=== PATIENT | male | born 1950 | race African-American/Black ===

== ENCOUNTER 2022-03-10 08:10 | Inpatient (IN) | payer MEDICARE, MEDICAID ==
[~2022-03-10] VITALS: Ht 170.2 cm; Wt 57.2 kg
[2022-03-10 10:59] LABS: CHLORIDE 126 mEq/L (98-107)
[2022-03-10 11:07] LABS: BASOPHILS % 0.2 % (0.0-2.0); EOSINOPHILS % 0.5 % (0.0-5.0); HEMATOCRIT. 33.4 % (42.0-52.0); HEMOGLOBIN. 10.7 g/dL (14.0-18.0); LYMPHOCYTES % 8.8 % (20.0-50.0); MEAN CORPUSCULAR HEMOGLOBIN 29.8 pg (28.0-32.0); MEAN CORPUSCULAR VOLUME 92.7 fL (80.0-94.0); MEAN PLATELET VOLUME 9.1 fl (7.4-10.4); MONOCYTES % 5.5 % (2.0-8.0); PLATELET 315 x1000/uL (130-400); RED CELL DISTRIBUTION WIDTH 15.4 % (11.6-14.6)
[2022-03-10] MEDS ORDERED: DEXTROSE 5% WATER 1,000 ML IV ONE (12:45)
[2022-03-10] MEDS ORDERED: ONDANSETRON HCL 4MG/2ML INJ IV PRN (13:30)
[2022-03-10] MEDS ORDERED: CLONIDINE 0.1MG TABLET PO PRN (13:30)
[2022-03-10] MEDS ORDERED: IPRATROPIUM/ALBUTEROL 0.5-3(2.5)MG/3ML NEB HHN PRN (13:30)
[2022-03-10] MEDS ORDERED: GUAIFENESIN 200MG/10ML SUGAR FREE UDC PO PRN (13:30)
[2022-03-10] MEDS ORDERED: MAGNESIUM/ALUMINUM HYDROXIDE/SIMETHICONE 30ML UDC PO PRN (13:30)
[2022-03-10] MEDS ORDERED: ACETAMINOPHEN 325MG TABLET PO PRN (13:30)
[2022-03-10] MEDS ORDERED: ACETAMINOPHEN 650MG/20.3ML UDC GT PRN (13:30)
[2022-03-10] MEDS ORDERED: DIPHENHYDRAMINE 50MG/ML VIAL IV PRN (13:30)
[2022-03-10 14:15] LABS: BG BASE EXCESS 1.3 mmol/L (-2.0-2.0); BG CARBOXYHEMOGLOBIN 0.6 % (0.5-1.5); BG DEOXYHEMOGLOBIN 3.2 % (0.0-5.0); BG FRACTION INSPIRED OXYGEN 21; BG HCO3 ACT 24.8 mmol/L (22.0-26.0); BG METHEMOGLOBIN 0.1 % (0.0-1.5); BG OXYGEN SATURATION 96.8 % (92.0-98.5); BG OXYHEMOGLOBIN 96.1 % (94.0-97.0); BG PCO2 35.2 mmHg (35.0-45.0); BG PH 7.465 (7.350-7.450); BG SAMPLE SITE RIGHT BRACHIAL; BG TOTAL HEMOGLOBIN 12.6 g/dL (12.0-18.0); BG VENT MODE ROOM AIR
[2022-03-10] MEDS: MEMANTINE HCL 5MG TABLET PO SCH ×2 (15:00→21:35)
[2022-03-10 17:09] VITALS: BP 132/72
[2022-03-10] MEDS: RISPERIDONE 0.5MG TABLET PO SCH (17:47)
[2022-03-10 18:00] VITALS: BP 128/78
[2022-03-10 18:57] LABS: CREATINE KINASE 52 IU/L (39-308)
[2022-03-10 19:03] LABS: T4 FREE 1.89 ng/dL (0.76-1.46)
[2022-03-10 19:51] LABS: T4 FREE 1.87 ng/dL (0.76-1.46)
[2022-03-10 20:00] VITALS: BP 106/77
[2022-03-10 20:13] LABS: FOLIC ACID (FOLATE) SERUM 17.1 ng/mL (>5.38)
[2022-03-10] MEDS: ATORVASTATIN CALCIUM 10MG TABLET PO SCH ×2 (21:00→21:35)
[2022-03-10] MEDS: MIRTAZAPINE 15MG TABLET PO SCH (21:00)
[2022-03-10] MEDS: ENOXAPARIN 40MG/0.4ML SYR SUBCUT SCH (21:34)
[2022-03-10] MEDS: BENZTROPINE MESYLATE 1MG TABLET PO SCH (21:35)
[2022-03-10] MEDS: DEXTROSE 5% WATER 1,000 ML IV SCH (21:36)
[2022-03-10] MEDS: FAMOTIDINE 20MG TABLET PO SCH (21:36)
[2022-03-11] VITALS: BP 101/75
[2022-03-11 00:40] LABS: CREATINE KINASE MB FRACTION 2.1 ng/mL (0.5-3.6)
[2022-03-11 04:00] VITALS: BP 115/83
[2022-03-11] MEDS: DEXTROSE 5% WATER 1,000 ML IV SCH ×2 (07:00→17:00)
[2022-03-11 07:33] LABS: BASOPHILS % 0.2 % (0.0-2.0); EOSINOPHILS % 0.6 % (0.0-5.0); HEMATOCRIT. 36.2 % (42.0-52.0); HEMOGLOBIN. 11.5 g/dL (14.0-18.0); LYMPHOCYTES % 9.5 % (20.0-50.0); MEAN CORPUSCULAR HEMOGLOBIN 29.5 pg (28.0-32.0); MEAN CORPUSCULAR VOLUME 93.3 fL (80.0-94.0); MEAN PLATELET VOLUME 8.7 fl (7.4-10.4); MONOCYTES % 6.2 % (2.0-8.0); NEUTROPHILS % 83.5 % (40.0-76.0); PLATELET 329 x1000/uL (130-400); RED BLOOD CELL COUNT 3.89 mill/uL (4.7-6.1); RED CELL DISTRIBUTION WIDTH 15.7 % (11.6-14.6)
[2022-03-11 08:00] VITALS: BP 106/80
[2022-03-11 08:27] LABS: CHLORIDE 122 mEq/L (98-107)
[2022-03-11] MEDS: RISPERIDONE 0.5MG TABLET PO SCH ×2 (09:06→17:00)
[2022-03-11] MEDS: ASPIRIN 81MG TABLET PO SCH (09:06)
[2022-03-11] MEDS: MEMANTINE HCL 5MG TABLET PO SCH (09:06)
[2022-03-11] MEDS: BENZTROPINE MESYLATE 1MG TABLET PO SCH (09:06)
[2022-03-11 12:00] VITALS: BP 94/67
[2022-03-11] MEDS: ENOXAPARIN 40MG/0.4ML SYR SUBCUT SCH (15:41)
[2022-03-11 16:00] VITALS: BP 104/81
[2022-03-11 20:00] VITALS: BP 108/78
[2022-03-11] MEDS: MIRTAZAPINE 15MG TABLET PO SCH (20:58)
[2022-03-11] MEDS: ATORVASTATIN CALCIUM 10MG TABLET PO SCH (21:00)
[2022-03-11] MEDS: FAMOTIDINE 20MG TABLET PO SCH (21:00)
[2022-03-12] VITALS: BP 133/73
[2022-03-12] MEDS: DEXTROSE 5% WATER 1,000 ML IV SCH ×2 (03:11→13:29)
[2022-03-12 04:00] VITALS: BP_SYST 106; BP_SYST 131; BP_DIAS 71; BP_DIAS 88
[2022-03-12 07:59] LABS: BASOPHILS % 0.3 % (0.0-2.0); EOSINOPHILS % 0.6 % (0.0-5.0); HEMATOCRIT. 33.4 % (42.0-52.0); HEMOGLOBIN. 10.8 g/dL (14.0-18.0); LYMPHOCYTES % 7.9 % (20.0-50.0); MEAN CORPUSCULAR HEMOGLOBIN 29.9 pg (28.0-32.0); MEAN CORPUSCULAR VOLUME 92.3 fL (80.0-94.0); MEAN PLATELET VOLUME 8.8 fl (7.4-10.4); MONOCYTES % 6.5 % (2.0-8.0); NEUTROPHILS % 84.7 % (40.0-76.0); PLATELET 326 x1000/uL (130-400); RED BLOOD CELL COUNT 3.62 mill/uL (4.7-6.1); RED CELL DISTRIBUTION WIDTH 15.4 % (11.6-14.6)
[2022-03-12 08:00] VITALS: BP 122/79
[2022-03-12 08:15] LABS: CHLORIDE 119 mEq/L (98-107)
[2022-03-12] MEDS: BENZTROPINE MESYLATE 1MG TABLET PO SCH (08:55)
[2022-03-12] MEDS: ASPIRIN 81MG TABLET PO SCH (08:55)
[2022-03-12] MEDS: RISPERIDONE 0.5MG TABLET PO SCH ×2 (08:55→17:00)
[2022-03-12] MEDS: MEMANTINE HCL 5MG TABLET PO SCH (08:55)
[2022-03-12 12:00] VITALS: BP 146/95
[2022-03-12] MEDS: ENOXAPARIN 40MG/0.4ML SYR SUBCUT SCH (15:30)
[2022-03-12] MEDS ORDERED: POTASSIUM CHLORIDE INJ 40 MEQ in DEXT 5% WATER 250 ML IV ONE (15:30)
[2022-03-12 16:00] VITALS: BP 107/54
[2022-03-12] MEDS: KCL 20MEQ/100ML X 2 FOR TOTAL KCL 40MEQ/200ML IV SCH ×2 (17:27→19:09)
[2022-03-12 20:00] VITALS: BP 103/61
[2022-03-12] MEDS: ATORVASTATIN CALCIUM 10MG TABLET PO SCH ×2 (21:00→21:31)
[2022-03-12] MEDS: FAMOTIDINE 20MG TABLET PO SCH ×2 (21:00→21:31)
[2022-03-12] MEDS: MIRTAZAPINE 15MG TABLET PO SCH ×2 (21:00→21:31)
[2022-03-13] VITALS: BP 128/73
[2022-03-13] MEDS: DEXTROSE 5% WATER 1,000 ML IV SCH ×2 (02:29→09:00)
[2022-03-13 04:00] VITALS: BP 129/72
[2022-03-13 08:00] VITALS: BP 136/93
[2022-03-13 08:42] LABS: BASOPHILS % 0.2 % (0.0-2.0); EOSINOPHILS % 0.6 % (0.0-5.0); HEMATOCRIT. 32.6 % (42.0-52.0); HEMOGLOBIN. 10.3 g/dL (14.0-18.0); LYMPHOCYTES % 8.5 % (20.0-50.0); MEAN CORPUSCULAR HEMOGLOBIN 29.2 pg (28.0-32.0); MEAN CORPUSCULAR VOLUME 92.6 fL (80.0-94.0); MEAN PLATELET VOLUME 8.8 fl (7.4-10.4); MONOCYTES % 5.8 % (2.0-8.0); NEUTROPHILS % 84.9 % (40.0-76.0); PLATELET 299 x1000/uL (130-400); RED BLOOD CELL COUNT 3.52 mill/uL (4.7-6.1); RED CELL DISTRIBUTION WIDTH 15.6 % (11.6-14.6)
[2022-03-13] MEDS: RISPERIDONE 0.5MG TABLET PO SCH (09:00)
[2022-03-13] MEDS: BENZTROPINE MESYLATE 1MG TABLET PO SCH (09:00)
[2022-03-13] MEDS: ASPIRIN 81MG TABLET PO SCH (09:00)
[2022-03-13] MEDS: MEMANTINE HCL 5MG TABLET PO SCH (09:00)
[2022-03-13 09:16] LABS: CHLORIDE 116 mEq/L (98-107)
[2022-03-13 12:00] VITALS: BP_SYST 115; BP_SYST 118; BP_SYST 188; BP_DIAS 77; BP_DIAS 88
[2022-03-13 14:38] VITALS: BP 118/79
== END 2022-03-13 15:45 | DRG 56 ==
LOC: ER 08:10 → 7EST 12:32 → EDBEDREQ 12:34 → EDBEDREQTM 12:34 → EDBEDREQ 12:35 → EDBEDREQSVC 14:05 → ENRESERV 15:23
PROVIDERS: ADMIT Internal Medicine; ATTEND Internal Medicine
PROC: 05HY33Z Insertion of Infusion Device into Upper Vein, Percutaneous Approach (ICD-10-PCS; principal; 2022-03-11)
PROC: B54MZZA Ultrasonography of Right Upper Extremity Veins, Guidance (ICD-10-PCS; 2022-03-11)
DX: G91.9 Hydrocephalus, unspecified (principal); G93.41 Metabolic encephalopathy; F02.83 Dementia in other diseases classified elsewhere, unspecified severity, with mood disturbance; E87.0 Hyperosmolality and hypernatremia; E86.0 Dehydration; F20.9 Schizophrenia, unspecified; F31.9 Bipolar disorder, unspecified; Z20.822 Contact with and (suspected) exposure to COVID-19; G20 Parkinson's disease; I11.0 Hypertensive heart disease with heart failure; I25.10 Atherosclerotic heart disease of native coronary artery without angina pectoris; I50.9 Heart failure, unspecified; E87.6 Hypokalemia; R79.89 Other specified abnormal findings of blood chemistry; Z74.01 Bed confinement status; Z79.899 Other long term (current) drug therapy
CPT/HCPCS: 36415; 36573; 36600; 70551; 71045; 80053; 80061; 82040; 82248; 82375; 82550; 82553; 82607; 82746; 82805; 83036; 83540; 83550; 84439; 84443; 84484; 85025; 87426; 93005; 93306; 97162; 97165; 99291; C1725; C1893; J1650; J3480; J7070